=== PATIENT | female | born 1990 | race Caucasian/White ===

== ENCOUNTER 2017-02-19 13:00 | Emergency (ER) | payer BC, MEDICAID ==
[2017-02-19] MEDS ORDERED: ONDANSETRON 4 MG/2 ML VIAL IVP ONE ×2 (13:59→15:35)
[2017-02-19] MEDS ORDERED: NS 1,000 ML IV ONE ×3 (13:59→16:11)
--- NOTE | 2017-02-19 14:00 | EDPHY ---
HPI/HX/ROS/PE/MDM Narrative: CHIEF COMPLAINT: Heroin withdrawal, abdominal pain HISTORY OF PRESENT ILLNESS: The patient is a 26 y/o female complaining of waxing and waning abdominal pain secondary to withdrawing from heroin. She has been using heroin for several years with intermittent periods of no heroin use. Today is is her 2nd day of not using heroin. She used meth 2 days ago, which she usually uses when she runs out of heroin. Reports diaphoresis, diarrhea, and mild shortness of breath. Nausea and limited po intake. No vomiting. No fevers. Somewhat anxious. Also has history of anxiety and depression. Reports suicidal ideation ( overdose as plan) for past several days. States she uses heroin to get away from her life; when not on opiates her depression and anxiety worsen. Denies oral narcotics, alcohol or marijuana use. No fever, chest pain, palpitations, vomiting, urinary complaints, headache, lightheadedness. REVIEW OF SYSTEMS: Aside from elements discussed in the HPI, a comprehensive 10-point review of systems was reviewed and is negative. PAST MEDICAL HISTORY: Depression, anxiety, PTSD SOCIAL HISTORY: Friend at bedside, polysubstance abuse, tobacco use VITAL SIGNS: Reviewed by me GENERAL: Diaphoretic. Well-developed, well-nourished, resting comfortably in no respiratory distress. HEENT: Atraumatic. Eyes: No icterus, no injection. Mouth: dry mucous membranes. No erythema or lesions. Neck: supple with no adenopathy. LUNGS: 1 isolated wheeze of left lung. Clear to auscultation bilaterally, no rhonchi or rales. CARDIAC: Regular rate and rhythm, no rubs, murmurs or gallops. ABDOMEN: Soft, nontender, nondistended, bowel sounds normal. BACK: No CVA tenderness. EXTREMITIES: No trauma. No edema. Range of motion is normal throughout. NEURO: Alert and oriented, grossly nonfocal. SKIN: Track moore on both arms. Warm and dry, no rash. PSYCHIATRIC: Normal mentation, no agitation. ED Course: The patient is a 26 y/o female presenting with abdominal pain, diarrhea, nausea secondary to withdrawing from heroin for 2 days. On exam she is diaphoretic and has an isolated wheeze in her left lung. Her abdomen is benign. She does admit to [facility] for the past 2 days. Placed on 72 hr MHH by myself. Will have [facility] evaluate when stable. 0.2mg PO Clonidine, 4mg IV Zofran, and 1L IV NS administered. 1534: Patient's labs largely unremarkable. Her nurse reports that she is still having abdominal pain. 1mg IV Ativan, 40mg IV Protonix, 4mg IV Zofran and 1L IV NS administered. Patient is on an M1 hold and her urine tox is positive for meth as well as opiates. Patient was evaluated by [facility] around 6:00 p.m.. We are pursuing placement. Patient was accepted at [facility] at 10:00 p.m.. Transfer paperwork was signed by myself. MDM: Differential diagnoses for the patient's symptom complex was considered including but not limited to heroin withdrawal, methadone withdrawal, alcohol withdrawal, polysubstance abuse, depression, anxiety, suicidal ideation. - Data Points Laboratory Results: Laboratory Results 02/19/17 15:16 02/19/17 14:25 Medications Given: Discontinued Medications Clonidine (Catapres) 0.2 mg PO EDNOW ONE Stop: 02/19/17 14:09 Last Admin: 02/19/17 14:35 Dose: 0.2 mg Sodium Chloride (Ns) 1,000 mls @ 0 mls/hr IV ONCE ONE; Wide Open PRN Reason: Protocol Stop: 02/19/17 14:00 Last Admin: 02/19/17 14:39 Dose: 1,000 mls Sodium Chloride (Ns) 1,000 mls @ 0 mls/hr IV EDNOW ONE; Wide Open PRN Reason: Protocol Stop: 02/19/17 15:38 Last Admin: 02/19/17 15:38 Dose: 1,000 mls Sodium Chloride (Ns) 1,000 mls @ 0 mls/hr IV ONCE ONE; Wide Open PRN Reason: Protocol Stop: 02/19/17 16:12 Last Admin: 02/19/17 17:15 Dose: Not Given Lorazepam (Ativan Injection) 1 mg IVP EDNOW ONE Stop: 02/19/17 15:36 Last Admin: 02/19/17 17:15 Dose: 1 mg Lorazepam (Ativan Injection) 1 mg IVP EDNOW ONE Stop: 02/19/17 20:27 Last Admin: 02/19/17 20:30 Dose: 1 mg Lorazepam (Ativan) 1 mg PO EDNOW ONE Stop: 02/20/17 01:04 Last Admin: 02/20/17 01:04 Dose: 1 mg Ondansetron HCl (Zofran) 4 mg IVP EDNOW ONE Stop: 02/19/17 14:00 Last Admin: 02/19/17 14:35 Dose: 4 mg Ondansetron HCl (Zofran) 4 mg IVP EDNOW ONE Stop: 02/19/17 15:36 Last Admin: 02/19/17 15:38 Dose: 4 mg Pantoprazole Sodium (Protonix) 40 mg IVP EDNOW ONE Stop: 02/19/17 15:29 Last Admin: 02/19/17 15:37 Dose: 40 mg General Time Seen by Provider: 02/19/17 13:49 Initial Vital Signs: Initial Vital Signs Temperature (C) 36.4 C 02/19/17 13:03 Heart Rate 120 H 02/19/17 13:03 Respiratory Rate 16 02/19/17 13:03 Blood Pressure 134/82 H 02/19/17 13:03 O2 Sat (%) 99 02/19/17 13:03 O2 Delivery Mode Room Air Allergies/Adverse Reactions: No Known Allergies Allergy (Unverified 02/19/17 13:02) Home Medications: Medication Instructions Recorded Zoloft 100mg (RX) 10/27/14 GABAPENTIN 01/16/15 Departure - Departure Disposition: Other Psych, Not [facility] Clinical Impression: Opiate withdrawal, Suicidal ideation Condition: Fair Referrals: Mey Mayer MD [Primary Care Provider] - As per Instructions Report Scribed for: Camille Cantu Report Scribed by: Analy Hanson Date of Report: 02/19/17 Time of Report: 14:12 Physician Review and Approval Statement: Portions of this note were transcribed by a medical science liaison. I personally performed a history, physical exam, medical decision making, and confirmed accuracy of information the transcribed note.
[2017-02-19 14:47] LABS: ALANINE AMINOTRANSFERASE 38 IU/L (9-52); ALBUMIN 5.6 g/dL (3.5-5.0); ALKALINE PHOSPHATASE 113 IU/L (38-126); ANION GAP 24 mEq/L (8-16); ASPARTATE AMINOTRANSFERASE 29 IU/L (14-46); BILIRUBIN-CONJUGATED 0.5 mg/dL (0.0-0.5); BILIRUBIN-UNCONJUGATED 0.5 mg/dL (0.0-1.1); CALCIUM 11.3 mg/dL (8.5-10.4); CARBON DIOXIDE 18 mEq/l (22-31); CHLORIDE 101 mEq/L (97-110); CREATININE 0.9 mg/dL (0.6-1.0); ETHANOL SERUM < 10 mg/dL (0-10); GLOMERULAR FILTRATION RATE > 60; GLUCOSE 111 mg/dL (70-100); POTASSIUM 3.9 mEq/L (3.5-5.2); SODIUM 143 mEq/L (134-144); TOTAL PROTEIN 10.7 g/dL (6.3-8.2)
[2017-02-19 15:24] LABS: % IMMATURE GRANULYOCYTES 0.3 % (0.0-1.1); ABSOLUTE IMMATURE GRANULOCYTES 0.03 10^3/uL (0.00-0.10); ADD DIFF? NO; ADD MORPH? NO; ADD SCAN? NO; ATYPICAL LYMPHOCYTE FLAG 10 (0-99); FRAGMENT RBC FLAG 0 (0-99); HEMATOCRIT 43.6 % (38.0-47.0); LEFT SHIFT FLG 0 (0-99); LIPEMIA HEMOLYSIS FLAG 90 (0-99); MEAN CELL HEMOGLOBIN CONCENTR. 34.4 g/dL (32.4-36.7); MEAN CELL VOLUME 84.2 fL (81.5-99.8); MEAN PLATELET VOLUME 9.5 fL (8.7-11.7); PLATELET CLUMPS FLAG 0 (0-99); PLATELET COUNT 269 10^3/uL (150-400); RED BLOOD CELL COUNT 5.18 10^6/uL (4.18-5.33); RED CELL DISTRIBUTION WIDTH 12.7 % (11.5-15.2)
[2017-02-19] MEDS ORDERED: PANTOPRAZOLE SODIUM 40 MG VIAL IVP ONE (15:28)
[2017-02-19 15:34] LABS: COLOR AMBER; LEUKOCYTE ESTERASE,URINE TRACE (NEGATIVE); NITRITE,URINE NEGATIVE (NEGATIVE)
[2017-02-19] MEDS ORDERED: ONDANSETRON 4 MG/2 ML VIAL ONE (15:35)
[2017-02-19] MEDS ORDERED: LORazepam 2 MG/ML INJ IVP ONE ×2 (15:35→20:26)
[2017-02-19 15:36] LABS: BACTERIA 1+ /hpf (NONE SEEN); MUCUS 4+ /lpf (NONE-1+); RBC,URINE 25-50 /hpf (0-3)
[2017-02-20] MEDS ORDERED: LORazepam 1 MG TAB PO ONE (01:03)
[2017-02-20] MEDS ORDERED: LORazepam 1 MG TAB ONE (01:03)
[2017-02-20 01:08] VITALS: BP 111/48; PULSE 80; RESP 15; TEMP 98.6; O2SAT 99
== END 2017-02-20 01:05 ==
DX: R45.851 Suicidal ideations (principal); F11.23 Opioid dependence with withdrawal; F17.200 Nicotine dependence, unspecified, uncomplicated; E86.9 Volume depletion, unspecified
CPT/HCPCS: 80305; 96374; G0480; J2060; J2405